=== PATIENT | female | born 1950 | race Caucasian/White ===

== ENCOUNTER 2017-04-04 12:43 | Emergency (ER) | payer OTHER ==
[2017-04-04 13:01] VITALS: BP 151/81
[2017-04-04] MEDS ORDERED: cefTRIAXone 1 GM Vial IM ONE (13:19)
--- NOTE | 2017-04-04 13:21 | EDM.PDOC ---
ED HPI GENERAL MEDICAL PROBLEM - General Chief Complaint: General Stated Complaint: LEFT ARM IS RED AND SORE Time Seen by Provider: 04/04/17 13:12 Source of Information: Reports: Patient History Limitations: Reports: No limitations - History of Present Illness INITIAL COMMENTS - FREE TEXT/NARRATIVE: Hx of breast CA with mastectomy 'years ago' and recurrent cellulitis of the left arm. Pt reports started with mild redness of the left upper arm this AM and has continued to spread downward since that time. Mild redness of the left upper chest well which is also typical. No fever or chills at this time. States only fever present is in the left arm. Typical treatment plan consists of IM Rocephin 1 gram and she will increase Bactrim DS to 2 tabs daily for 14 days; is on once per day dosing currently. Onset: today Location: Reports: upper extremity, left Improves with: Reports: Medication Associated Symptoms: Reports: denies other symptoms denies Pain Score (Numeric/FACES): 0 - Related Data Allergies Allergy/AdvReac Type Severity Reaction Status Date / Time No Known Allergies Allergy Verified 04/04/17 13:02 Home Meds: Home Meds Sulfamethoxazole/Trimethoprim [Bactrim Ds Tablet] 1 tab PO DAILY 09/21/14 [ History] Aspirin [Lo-Dose Aspirin EC] 81 mg PO DAILY 09/29/16 [History] atorvaSTATin [Lipitor] 10 mg PO BEDTIME 09/29/16 [History] Past Medical History Cardiovascular History: Reports: Other (see below) Other Cardiovascular History: palpitations [employer] 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: Oncologic (Cancer) History: Reports: Breast Dermatologic History: Reports: Cellulitis, Other (see below) Other Dermatologic History: Lymphedema - Infectious Disease History Infectious Disease History: Reports: Chicken pox - Past Surgical History Female Surgical History: Reports: Breast reconstruction, section, Mastectomy, Tubal ligation Social & Family History - Family History Family Medical History: Noncontributory - Tobacco Use Smoking Status *Q: Never Smoker Second Hand Smoke Exposure: No - Caffeine Use Caffeine Use: Reports: Coffee - Alcohol Use Days Per Week of Alcohol Use: 0 - Recreational Drug Use Recreational Drug Use: No ED ROS GENERAL - Review of Systems Review Of Systems: ROS reveals no pertinent complaints other than HPI. ED EXAM, GENERAL - Physical Exam Exam: See Below Exam Limited By: No limitations General Appearance: alert, WD/WN, no apparent distress Nose: normal inspection Throat/Mouth: Normal lips, Normal voice, No airway compromise Head: atraumatic, normocephalic Neck: normal inspection, supple, full range of motion Respiratory/Chest: no respiratory distress, chest non-tender, other (left upper chest wall with faint pink rash present from the clavicle to the upper aspect of the left breast area.) Cardiovascular: normal peripheral pulses, regular rate, rhythm Peripheral Pulses: 4+: radial (L) Back Exam: normal inspection Extremities: normal range of motion, other (Lymphedema of the left upper extremity with noted swelling and redness. Mild warmth to touch. Pin point abrasion left lateral arm without any other open lesions identified.) Neurological: alert, oriented, normal cognition, normal gait Psychiatric: normal affect, normal mood Skin Exam: Increased warmth Course - Vital Signs Last Recorded V/S: Last Vital Signs Temp 36.4 C 04/04/17 12:59 Pulse 83 04/04/17 12:59 Resp 14 04/04/17 12:59 BP 151/81 H 04/04/17 12:59 Pulse Ox 99 04/04/17 12:59 - Orders/Labs/Meds Meds: Medications Discontinued Medications Generic Name Dose Route Start Last Admin Trade Name Freq PRN Reason Stop Dose Admin Ceftriaxone Sodium 1 gm 04/04/17 13:19 Rocephin IM 04/04/17 13:20 ONETIME ONE Departure - Departure Time of Disposition: 13:20 Disposition: Home, Self-Care 01 Condition: good Clinical Impression: Cellulitis of left arm Instructions: Cellulitis, Adult Referrals: Francine Bell CNM [Primary Care Provider] - Forms: ED Department Discharge Additional Instructions: 1. Increase your Bactrim DS to 1 tablet by mouth 2 times per day. Written Rx provided for 1 tablet per day in addition to regular daily dose. #14 2. Monitor for increasing symptoms, fever, drainage or open skin lesions and followup immediately. - Problem List & Annotations (1) Cellulitis of left arm SNOMED Code(s): 268460392, 350486336 Code(s): L03.114 - CELLULITIS OF LEFT UPPER LIMB Status: Acute Current Visit: Yes - Problem List Review Problem List Initiated/Reviewed/Updated: Yes
== END 2017-04-04 14:05 | disposition home or self-care (01) ==
LOC: JP.ED 12:43
DX: L03.114 Cellulitis of left upper limb (principal); Z85.3 Personal history of malignant neoplasm of breast; Z98.51 Tubal ligation status; Z90.10 Acquired absence of unspecified breast and nipple; Z98.890 Other specified postprocedural states; Z79.82 Long term (current) use of aspirin; Z79.899 Other long term (current) drug therapy
CPT/HCPCS: 99283; J0696

== ENCOUNTER 2019-11-02 06:42 | Day surgery (SDC) | payer MEDICARE, BC ==
[2019-11-02] MEDS ORDERED: Sodium Chloride 0.9% 10 ML ONE (06:44)
[2019-11-02] MEDS ORDERED: Lidocaine 1% with EPINEPHrine 1:100,000 50 ML MDV ONE (06:44)
[2019-11-02] MEDS ORDERED: Sodium Tetradecyl Sulfate 1% 20 MG/2 ML SDV ONE (06:44)
[2019-11-02] MEDS ORDERED: Sodium Chloride 0.9% 1,000 ML IV SCH (07:00)
[2019-11-02] MEDS ORDERED: Midazolam 1 MG/ML 2 ML SDV ONE (07:26)
[2019-11-02] MEDS ORDERED: fentaNYL 100 MCG/2 ML SDV ONE (07:26)
[2019-11-02] MEDS ORDERED: Propofol 200 MG/20 ML SDV ONE ×2 (07:26→07:52)
[2019-11-02] MEDS: Lidocaine 1% w/EPINEPHrine 50 ML, Sodium Bicarbonate 5 MEQ in Sodium Chloride 0.9% 950 ML INJECT SCH ×2 (07:51→07:52)
[2019-11-02] MEDS ORDERED: Acetaminophen/HYDROcodone 325-5 MG Tab PO PRN (09:11)
[2019-11-02 09:47] VITALS: BP 130/72; PULSE 62
--- NOTE | 2019-11-02 14:17 | OR ---
DATE OF PROCEDURE: 11/02/2019 SURGEON: Stephan Candelario MD PROCEDURES: 1. Radiofrequency ablation of left lesser saphenous vein. 2. Radiofrequency ablation of left greater saphenous vein. 3. Radiofrequency ablation of right greater saphenous vein. 4. Sclerotherapy, left leg, multiple. 5. Sclerotherapy, right leg, multiple. 6. Compression wrap, left leg, ([id number]). 7. Compression wrap, right leg, ([id number]). COMPLICATIONS: None. SECURITIES BROKER: None. PREOPERATIVE DIAGNOSES: Venous insufficiency with inflammation and pain. POSTOPERATIVE DIAGNOSES: Venous insufficiency with inflammation and pain. RISKS: Risks, benefits, alternatives, and limitations including, but not limited to infection, bleeding, and perforation were explained to the patient, and they wished to proceed. PROCEDURE IN DETAIL: The patient was placed in a supine position. Left LSV was accessed first. This was accessed at the level of the ankle. A 35,000th wire was introduced via 21- gauge needle and then advanced to the saphenofemoral junction. This was 3 cm distal to this. Tumescent fluid was injected in a 1-cm jacket around this and verified a second and a third time. Direct even pressure was held as the probe was deployed x2 proximally and distally, and x1 in all other segments. The sheath and device were then removed. The left LSV and the right GSV were also addressed in the same manner, same fashion, same technique, leading to radiofrequency ablation of the left greater saphenous vein, right greater saphenous vein and left lesser saphenous vein. These were all greater than 3 cm from the deep junction. All verified a second and a third time with tumescent fluid. Sclerotherapy was then performed of left and right legs using 0.33% sodium tetradecyl. There were 6 on the right, 7 on the left. No more than 2 mL was injected in one location. A two-layer, two-stage compression wrapping was then performed in a [id number] gradient. This was in a [id number] fashion. The patient tolerated the procedure well. Stephan Candelario MD /[id number]
== END 2019-11-02 10:14 | disposition home or self-care (01) ==
LOC: JP.SDS 06:42
PROVIDERS: ATTEND Surgery
DX: I83.12 Varicose veins of left lower extremity with inflammation (principal); I83.11 Varicose veins of right lower extremity with inflammation; E78.5 Hyperlipidemia, unspecified; I10 Essential (primary) hypertension; Z79.899 Other long term (current) drug therapy
CPT/HCPCS: 36471; 36475; 36476; A9270; J1642; J2250; J2704; J3010; J7030; J3490

== ENCOUNTER 2021-03-15 14:26 | Emergency (ER) | payer MEDICARE, BC ==
[2021-03-15 14:51] VITALS: BP 150/76; PULSE 77
[2021-03-15] MEDS ORDERED: cefTRIAXone 1 GM, Lidocaine 1% 2.1 ML IM ONE ×2 (15:13)
--- NOTE | 2021-03-15 15:14 | EDM.PDOC ---
ED HPI GENERAL MEDICAL PROBLEM - General Chief Complaint: Upper Extremity Injury/Pain Stated Complaint: CELLULITIS IN LEFT ARM? Time Seen by Provider: 03/15/21 15:07 Source of Information: Reports: Patient, Old Records, RN Notes Reviewed History Limitations: Reports: No Limitations - History of Present Illness INITIAL COMMENTS - FREE TEXT/NARRATIVE: 70-year-old female presents emergency department today with development of cellulitis in her left arm she has had cellulitis here multiple times stems from mastectomy and other surgeries involved in this arm weight is larger than the right she has had cellulitis in this arm multiple times. She states this episode is began over the last couple days warm and tender to the touch - Related Data Allergies Allergy/AdvReac Type Severity Reaction Status Date / Time No Known Allergies Allergy Verified 03/15/21 14:45 Home Meds: Home Meds Sulfamethoxazole/Trimethoprim [Bactrim Ds Tablet] 1 tab PO DAILY 09/21/14 [History] Aspirin [Lo-Dose Aspirin EC] 81 mg PO DAILY 09/29/16 [History] atorvaSTATin [Lipitor] 10 mg PO BEDTIME 09/29/16 [History] Metoprolol Succinate [Toprol XL] 25 mg PO DAILY 10/30/19 [History] [place]-3/DHA/Epa/Fish Oil [[place] 3 500 Softgel] 1 cap PO DAILY 10/30/19 [History] Ubidecarenone [Co Q-10] 100 mg PO DAILY 10/30/19 [History] Cholecalciferol (Vitamin D3) [Vitamin D] 1 tab PO DAILY 03/15/21 [History] Past Medical History HEENT History: Reports: None Cardiovascular History: Reports: Arrhythmia, High Cholesterol, Hypertension Other Cardiovascular History: palpitations Gastrointestinal History: Reports: None Genitourinary History: Reports: None 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: , Spontaneous Hematologic History: Reports: Bleeding Disorder Oncologic (Cancer) History: Reports: Basal Cell Carcinoma, Breast Dermatologic History: Reports: Cellulitis, Other (See Below) Other Dermatologic History: Lymphedema - Infectious Disease History Infectious Disease History: Reports: Chicken Pox, Mumps - Past Surgical History Head Surgeries/Procedures: Reports: None HEENT Surgical History: Reports: Oral Surgery Cardiovascular Surgical History: Reports: None GI Surgical History: Reports: Colonoscopy Female Surgical History: Reports: Breast Reconstruction, Section, Ma stectomy, Tubal Ligation Oncologic Surgical History: Reports: Mastectomy Dermatological Surgical History: Reports: None, Plastic Surgical Reconstructi on/Repair, Other (See Below) Social & Family History - Family History Family Medical History: No Pertinent Family History - Tobacco Use Tobacco Use Status *Q: Never Tobacco User Second Hand Smoke Exposure: No - Caffeine Use Caffeine Use: Reports: Coffee - Recreational Drug Use Recreational Drug Use: No Review of Systems - Review of Systems Review Of Systems: See Below Constitutional: Reports: No Symptoms Skin: Reports: Rash, Change in Color ED EXAM, GENERAL - Physical Exam Exam: See Below Free Text/Narrative:: Examination of the integument system it is red probably over the bicep it is warm to the touch it is slightly tender to the touch consistent with a cellulitis Course - Vital Signs Last Recorded V/S: Last Vital Signs Temp 97.6 F 03/15/21 14:52 Pulse 77 03/15/21 14:52 Resp 15 03/15/21 14:52 BP 150/76 H 03/15/21 14:52 Pulse Ox 96 03/15/21 14:52 Departure - Departure Time of Disposition: 15:14 Disposition: Home, Self-Care 01 Condition: Fair Clinical Impression: Cellulitis of left arm - Discharge Information Instructions: Cellulitis, Adult Referrals: Francine Bell CNM [Primary Care Provider] - Additional Instructions: Continue with your plan of increasing your Bactrim follow-up with your primary care next week for further evaluation if no improvement is seen call return to the emergency department worsening symptoms Sepsis Event Note (ED) - Evaluation Sepsis Screening Result: No Definite Risk - Focused Exam Vital Signs: Vital Signs Temp Pulse Resp BP Pulse Ox 03/15/21 14:52 97.6 F 77 15 150/76 H 96 03/15/21 14:50 97.6 F 77 15 150/76 H 96 - Assessment/Plan Plan: Assessment Acuity = acute Site and laterality = left arm cellulitis Etiology = probable bacterial cause Manifestations = none Location of injury = Home Lab values = none Plan She usually gets treated with 1 g Rocephin and then she will double up with her Bactrim follow-up primary care next week This note was dictated using [employer] voice recognition software please call with any questions on syntax or grammar.
== END 2021-03-15 15:41 | disposition home or self-care (01) ==
LOC: JP.ED 14:26
DX: L03.114 Cellulitis of left upper limb (principal); E78.00 Pure hypercholesterolemia, unspecified; I10 Essential (primary) hypertension; Z79.82 Long term (current) use of aspirin; Z79.899 Other long term (current) drug therapy
CPT/HCPCS: 96372; 99283; J0696

== ENCOUNTER 2022-04-05 20:39 | Emergency (ER) | payer MEDICARE, BC ==
[2022-04-05 20:56] VITALS: BP 158/78; PULSE 70
[2022-04-05] MEDS ORDERED: cefTRIAXone 1 GM, Lidocaine 1% 2.1 ML IM ONE ×2 (20:56)
== END 2022-04-05 21:12 | disposition home or self-care (01) ==
LOC: JP.ED 20:39
DX: L03.114 Cellulitis of left upper limb (principal); E78.00 Pure hypercholesterolemia, unspecified; I10 Essential (primary) hypertension; Z79.82 Long term (current) use of aspirin; Z79.899 Other long term (current) drug therapy
CPT/HCPCS: 96372; 99283; 99283-25; J0696

== ENCOUNTER 2023-02-20 05:28 | Emergency (ER) | payer MEDICARE, BC ==
[2023-02-20 05:41] VITALS: BP 141/77; PULSE 87
[2023-02-20] MEDS ORDERED: cefTRIAXone 1 GM, Lidocaine 1% 2.1 ML IM ONE ×2 (05:58)
== END 2023-02-20 06:17 | disposition home or self-care (01) ==
LOC: JP.ED 05:28
DX: L03.114 Cellulitis of left upper limb (principal); E78.00 Pure hypercholesterolemia, unspecified; I10 Essential (primary) hypertension; Z79.82 Long term (current) use of aspirin; Z79.899 Other long term (current) drug therapy
CPT/HCPCS: 96372; 99284; J0696; 99283

== ENCOUNTER 2023-03-23 07:19 | Emergency (ER) | payer MEDICARE, BC ==
[2023-03-23 07:40] VITALS: BP 150/75; PULSE 92
[2023-03-23] MEDS ORDERED: cefTRIAXone 1 GM Vial IM ONE (07:52)
[2023-03-23] MEDS ORDERED: Lidocaine 1% 5 ML VIAL INJECT ONE (07:52)
== END 2023-03-23 08:39 | disposition home or self-care (01) ==
LOC: JP.ED 07:19
DX: L03.114 Cellulitis of left upper limb (principal); I10 Essential (primary) hypertension; E78.00 Pure hypercholesterolemia, unspecified; Z79.82 Long term (current) use of aspirin; Z79.899 Other long term (current) drug therapy
CPT/HCPCS: 96372; 99283; J0696

== ENCOUNTER 2023-04-24 09:35 | Emergency (ER) | payer MEDICARE, BC ==
[2023-04-24 10:41] VITALS: BP 177/75; PULSE 73
[2023-04-24 11:11] LABS: BASOPHILS PERCENT AUTO 0.4 % (0.1-1.3); EOSINOPHILS ABSOLUTE AUTO 0.03 K/uL (0.00-0.40); EOSINOPHILS PERCENT AUTO 0.5 % (0.0-5.4); HEMATOCRIT 41.8 % (34.3-46.0); IMMATURE GRAN PERCENT AUTO 0.4 % (0.0-0.7); LYMPHOCYTES ABSOLUTE AUTO 1.61 K/uL (0.8-3.3); LYMPHOCYTES PERCENT AUTO 29.3 % (11.4-47.7); MEAN CORPUSCULAR HGB CONC 33.5 g/dL (31.6-35.5); MEAN CORPUSCULAR VOLUME 86.7 fL (81.4-99.0); MONOCYTES PERCENT AUTO 9.1 % (3.3-12.6); NEUTROPHILS ABSOLUTE AUTO 3.31 K/uL (1.0-7.6); NEUTROPHILS PERCENT AUTO 60.3 % (40.0-78.1); PLATELET COUNT,PLT 142 K/uL (130-375); RED BLOOD CELL COUNT 4.82 M/uL (3.77-5.24); WHITE BLOOD CELL COUNT,WBC 5.5 K/uL (3.2-11.0)
[2023-04-24 11:14] LABS: BASOPHILS ABSOLUTE AUTO 0.02 K/uL (0.00-0.10); IMMATURE GRAN ABSOLUTE AUTO 0.02 K/uL (0.00-0.23)
[2023-04-24 11:51] LABS: CALCIUM 9.5 mg/dL (8.5-10.1); CREATININE 0.8 mg/dL (0.6-1.0); EST CRCL DRUG DOSING (CG) 51.01 mL/min; TROPONIN I HIGH SENSITIVITY 6.1 pg/mL (<=60.3)
== END 2023-04-24 12:31 | disposition home or self-care (01) ==
LOC: JP.ED 09:35
DX: R55 Syncope and collapse (principal); E78.00 Pure hypercholesterolemia, unspecified; I10 Essential (primary) hypertension; Z79.82 Long term (current) use of aspirin; Z79.899 Other long term (current) drug therapy
CPT/HCPCS: 36415; 80048; 84484; 85025; 93005; 99284